=== PATIENT | female | born 1960 | race African-American/Black ===

== ENCOUNTER → 2017-05-18 | Outpatient (CLI) | payer OTHER ==
[~2017-05-18] MED LIST: CENTRUM SILVER1 EAC4 PO; INVOKANA100 MG; NEURONTIN 300300 M1 PO; NORCO 5-325 TA1 EACH PO; NOVOLIN N100 UNIT/1 SUBQ; NOVOLIN R100 UNIT/1 SUBQ; PANTOPRAZOLE SO40 M1 PO; PROZAC 10 MG CA10 MG; PROZAC10 M1 PO
[2017-05-18 12:45] LABS: ABSOLUTE NEUTROPHILS 4.6 thou/uL (1.4-8.2); BASOPHILS 0.8 % (0.0-2.0); EOSINOPHILS 4.1 % (0.0-3.0); HEMATOCRIT 35.9 % (37.0-47.0); HEMOGLOBIN 12.1 gm/dL (12.0-15.0); MANUAL DIFF NO; MCH 27.9 pg (26.0-34.0); MCHC 33.6 g/dL (28.0-37.0); MCV 83.1 fL (80.0-100.0); MONOCYTES 6.2 % (1.0-8.0); PLATELET COUNT 278 thou/uL (150-400); POLYS 57.9 % (36.0-66.0); RBC 4.33 mil/uL (4.20-5.00); RDW 13.6 % (10.5-14.5)
[2017-05-18 12:56] LABS: CALCIUM 9.2 mg/dL (8.5-10.1); CREATININE 0.8 mg/dL (0.6-1.0); POTASSIUM 4.2 mmol/L (3.5-5.1)
[2017-05-18 13:00] LABS: ALBUMIN 3.5 g/dL (3.4-5.0); TOTAL BILIRUBIN 0.2 mg/dL (<0.1-1.0); TOTAL PROTEIN 8.5 g/dL (6.4-8.2)
== END ==
LOC: LABMALL 12:18
PROVIDERS: Surgery
DX: E11.9 Type 2 diabetes mellitus without complications (principal); K21.9 Gastro-esophageal reflux disease without esophagitis; E66.01 Morbid (severe) obesity due to excess calories; Z68.41 Body mass index [BMI] 40.0-44.9, adult

== ENCOUNTER 2017-05-20 05:33 | Day surgery (SDC) | payer OTHER ==
[~2017-05-20] VITALS: Ht 157.5 cm; Wt 95.9 kg
--- NOTE | ~2017-05-20 | S ---
[facility] [place] [address] SURGICAL PATH RPT PROCEDURE Name: MOHINI BROWN Room #: DEP [facility] M..#: [id number] Admission: 05/20/17 Date of : 56 Discharge: 05/21/17 Report #: [id number] Path Case #: [id number] PATHOLOGY REPORT COLLECTION DATE: 05/20/2017 RECEIVED DATE: 05/20/2017 SUBMITTING PHYS: Dr. Negro Jay OTHER PHYS: Dr. Nasir Sylvester SPECIMEN(S) RECEIVED: A.Gastric sleeve * * * * * * * * * * * * FINAL DIAGNOSIS: Gastric sleeve, partial sleeve gastrectomy: - No significant diagnostic abnormalities present, history of morbid obesity. (IUV:pit; 05/23/2017) PATHOLOGIST: Gabriela Juan M.D. REPORT ELECTRONICALLY SIGNED BY: Gabriela Juan M.D. DATE/TIME: 05/23/2017 15:08 * * * * * * * * * * * * GROSS PATHOLOGY: The specimen is received in formalin, labeled "Mohini Brown, gastric sleeve". Received is an elongated partial gastrectomy specimen measuring 17.8 cm in length and up to 3.2 cm in diameter. A long stapled resection margin is identified. The serosal surface of the specimen displays a wrinkled, pale pink to goddard appearance. Opening the specimen reveals a normal, pale goddard, folded mucosa with no polypoid adhesions or solid masses identified. Android Programmer sections are submitted in cassette A1. (SNA; 05/20/2017) CLINICAL HISTORY: Morbid obesity INITIAL CPT CODE(S): A; 09193 Professional services performed by [facility] at [facility] [address], [place] [address] Technical services performed by [facility] at [address] [place] [address] [address] [place] [address] SURGICAL PATH RPT PROCEDURE Name: MOHINI BROWN Room #: DEP [facility] Surjit#: [id number] Admission: 05/20/17 Date of : 56 Discharge: 05/21/17 Report #: [id number] Path Case #: [id number] [place] [address]. [facility] [address] [place] [address] PHONE: [phone] DIRECTOR: Mayco Young M.D. * * * END OF REPORT * * *
--- NOTE | ~2017-05-20 | EKG ---
[place] [address] [facility] [place] [address] ELECTROCARDIOGRAM REPORT Name: ABRAHAM BROWN Room #: DEP [facility]#: [id number] Admission: 05/20/17 Attend Phys: Negro Jay MD, F Discharge: 05/21/17 Date of : 56 Report #: [id number] THIS REPORT FOR: //name// [facility] Test Date: 2017-05-20 Test Time: 06:43:27 Pat Name: ABRAHAM BROWN Department: Room: 150 2 Gender: F Low Voltage Technician: : 1960 Requested By: Negro Jay Order Number: [id number] MD: Arjun Stephens Measurements Intervals [place] Rate: 70 P: 49 VT: 148 QRS: 0 QRSD: 95 T: 100 QT: 421 QTc: 455 Interpretive Statements Sinus rhythm Left ventricular hypertrophy Nonspecific T abnrm, anterolateral leads No previous ECG available for comparison Electronically Signed On 05-22-2017 13:06:44 CDT by Arjun Stephens [email or web address] <ELECTRONICALLY SIGNED> By: Arjun Stephens MD, [facility] 05/22/17 1306 [id number] 2 Arjun Stephens MD, FACC /EPI
[2017-05-20 07:15] VITALS: BP 126/73
[2017-05-20 20:34] VITALS: BP 100/50
[2017-05-21 04:00] VITALS: BP 109/54
[2017-05-21 05:11] LABS: BASOPHILS 0.3 % (0.0-2.0); EOSINOPHILS 1.4 % (0.0-3.0); HEMATOCRIT 34.7 % (37.0-47.0); HEMOGLOBIN 11.4 gm/dL (12.0-15.0); LYMPHOCYTES 30.1 % (24.0-44.0); MCH 27.6 pg (26.0-34.0); MCHC 32.8 g/dL (28.0-37.0); MCV 84.2 fL (80.0-100.0); MONOCYTES 8.1 % (1.0-8.0); PLATELET COUNT 299 thou/uL (150-400); POLYS 60.1 % (36.0-66.0); RBC 4.12 mil/uL (4.20-5.00); RDW 14.2 % (10.5-14.5); WBC 11.7 thou/uL (4.0-11.0)
[2017-05-21 05:37] LABS: MANUAL DIFF NO
[2017-05-21 05:56] LABS: CALCIUM 7.9 mg/dL (8.5-10.1); CREATININE 1.1 mg/dL (0.6-1.0)
[2017-05-21 16:08] VITALS: BP 109/54
== END 2017-05-21 17:07 | disposition home or self-care (01) ==
LOC: TBA 05:33 → OR 05:33 → TBA 05:34 → EDSTATUS 10:08 → OR 10:10 → 5S 10:54 → OR 10:58 → GI 14:56 → OR 05-21 17:07
PROVIDERS: Surgery
DX: E66.01 Morbid (severe) obesity due to excess calories (principal); E11.9 Type 2 diabetes mellitus without complications; K21.9 Gastro-esophageal reflux disease without esophagitis; M19.90 Unspecified osteoarthritis, unspecified site; F32.9 Major depressive disorder, single episode, unspecified
CPT/HCPCS: 50010; 50101; 50222; 50249; 50386; 50555; 50739; 50740; 50962; 51437; 52182; 52265; 53307; 53311; 54022; 54118; 55245; 56462; 56525; 56526; 57092; 62110; 62900; 70005

== ENCOUNTER 2017-05-28 17:37 | Inpatient (IN) | payer OTHER ==
[~2017-05-28] VITALS: Ht 157.5 cm; Wt 100.2 kg
[2017-05-28 17:40] VITALS: BP 146/88
[2017-05-28 18:24] LABS: ABSOLUTE NEUTROPHILS 9.1 thou/uL (1.4-8.2); BASOPHILS 0.3 % (0.0-2.0); EOSINOPHILS 1.1 % (0.0-3.0); HEMATOCRIT 38.8 % (37.0-47.0); HEMOGLOBIN 12.7 gm/dL (12.0-15.0); MCH 27.3 pg (26.0-34.0); MCHC 32.6 g/dL (28.0-37.0); MCV 83.7 fL (80.0-100.0); MONOCYTES 5.6 % (1.0-8.0); PLATELET COUNT 340 thou/uL (150-400); RBC 4.64 mil/uL (4.20-5.00); RDW 13.7 % (10.5-14.5); WBC 11.9 thou/uL (4.0-11.0)
[2017-05-28 18:25] LABS: MANUAL DIFF NO
[2017-05-28 18:35] LABS: CALCIUM 9.2 mg/dL (8.5-10.1); CREATININE 0.9 mg/dL (0.6-1.0); POTASSIUM 3.6 mmol/L (3.5-5.1)
[2017-05-28 18:39] LABS: ALBUMIN 3.3 g/dL (3.4-5.0); DIRECT BILIRUBIN 0.1 mg/dL (<0.1-0.3); TOTAL BILIRUBIN 0.5 mg/dL (<0.1-1.0); TOTAL PROTEIN 8.7 g/dL (6.4-8.2)
[2017-05-28 20:45] LABS: URINE BILIRUBIN NEGATIVE (Negative); URINE BLOOD NEGATIVE (Negative); URINE COLOR YELLOW; URINE GLUCOSE-RANDOM* NEGATIVE (Negative); URINE KETONES 3+ (Negative); URINE NITRITE NEGATIVE (Negative); URINE PROTEIN (DIPSTICK) NEGATIVE (Negative); URINE UROBILINOGEN 0.2 E.U./dl (0.2-1.0)
[2017-05-28 20:52] VITALS: BP 142/64; BP 143/66
[2017-05-28 21:30] VITALS: BP 138/64
[2017-05-28] MEDS ORDERED: OMEPRAZOLE-BIC1 EAC1 PO (22:34)
[2017-05-28] MEDS ORDERED: ONDANSETRON HCL4 M2 PO (22:35)
[2017-05-28] MEDS ORDERED: HYDROCODONE-APA1 TA1 PO (22:39)
[2017-05-28] MEDS ORDERED: UNICOMPLEX M TA1 TA1 (22:40)
[2017-05-28] MEDS ORDERED: NOVOLIN N100 UNIT/3 SQ (22:44)
[2017-05-28 23:50] VITALS: BP 138/63
[2017-05-29 04:27] LABS: CALCIUM 7.8 mg/dL (8.5-10.1); CREATININE 0.7 mg/dL (0.6-1.0); MAGNESIUM 1.5 mg/dL (1.8-2.4); PHOSPHORUS 3.1 mg/dL (2.5-4.9); POTASSIUM 3.5 mmol/L (3.5-5.1)
[2017-05-29 04:30] VITALS: BP 131/58
[2017-05-29 04:32] LABS: ABSOLUTE NEUTROPHILS 7.7 thou/uL (1.4-8.2); BASOPHILS 0.3 % (0.0-2.0); HEMATOCRIT 34.2 % (37.0-47.0); HEMOGLOBIN 11.3 gm/dL (12.0-15.0); LYMPHOCYTES 19.5 % (24.0-44.0); MCH 27.7 pg (26.0-34.0); MCHC 33.1 g/dL (28.0-37.0); MCV 83.6 fL (80.0-100.0); MONOCYTES 7.5 % (1.0-8.0); PLATELET COUNT 295 thou/uL (150-400); POLYS 69.7 % (36.0-66.0); RBC 4.09 mil/uL (4.20-5.00)
[2017-05-29 04:34] LABS: MANUAL DIFF NO
[2017-05-29 07:41] VITALS: BP 136/60
[2017-05-29] MEDS ORDERED: PHENERGAN12.5 M2 RECTAL (08:14)
[2017-05-29] MEDS ORDERED: HYDROCODONE-ACE15 ML PO (08:15)
[2017-05-29 10:46] VITALS: BP 136/60
== END 2017-05-29 11:40 | disposition home or self-care (01) | DRG 948 ==
LOC: ER 17:37 → EROBS 20:00 → 4S 21:12
PROVIDERS: Nurse Practitioner Family; Otolaryngology; Physician Assistant
DX: G89.18 Other acute postprocedural pain (principal); R11.2 Nausea with vomiting, unspecified; E11.9 Type 2 diabetes mellitus without complications; K21.9 Gastro-esophageal reflux disease without esophagitis; R10.9 Unspecified abdominal pain; E86.0 Dehydration; Z79.4 Long term (current) use of insulin; Z98.84 Bariatric surgery status; Z90.711 Acquired absence of uterus with remaining cervical stump; Z85.41 Personal history of malignant neoplasm of cervix uteri; Z90.49 Acquired absence of other specified parts of digestive tract; Z79.899 Other long term (current) drug therapy
CPT/HCPCS: 10100

== ENCOUNTER 2017-06-13 22:12 | Emergency (ER) | payer OTHER ==
[~2017-06-13] VITALS: Ht 157.5 cm; Wt 86.2 kg
[~2017-06-13 22:12] MED LIST changes: +HYDROCODONE-ACE15 ML PO; +HYDROCODONE-APA1 TA1 PO; +NOVOLIN N100 UNIT/3 SQ; +OMEPRAZOLE-BIC1 EAC1 PO; +ONDANSETRON HCL4 M2 PO; +PHENERGAN12.5 M2 RECTAL; +UNICOMPLEX M TA1 TA1 TOP
[2017-06-14 00:03] LABS: ABSOLUTE NEUTROPHILS 4.6 thou/uL (1.4-8.2); BASOPHILS 0.6 % (0.0-2.0); EOSINOPHILS 2.3 % (0.0-3.0); HEMATOCRIT 40.3 % (37.0-47.0); HEMOGLOBIN 13.2 gm/dL (12.0-15.0); LYMPHOCYTES 25.7 % (24.0-44.0); MCH 27.4 pg (26.0-34.0); MCHC 32.9 g/dL (28.0-37.0); MCV 83.4 fL (80.0-100.0); MONOCYTES 9.6 % (1.0-8.0); PLATELET COUNT 251 thou/uL (150-400); POLYS 61.8 % (36.0-66.0); RBC 4.83 mil/uL (4.20-5.00); RDW 13.8 % (10.5-14.5); WBC 7.5 thou/uL (4.0-11.0)
[2017-06-14 00:07] LABS: ANION GAP 14 mmol/L (7-16); BUN 16 mg/dL (7-18); CALCIUM 9.2 mg/dL (8.5-10.1); CHLORIDE 99 mmol/L (98-107); CO2 24 mmol/L (21-32); CREATININE 0.9 mg/dL (0.6-1.0); GLUCOSE 331 mg/dL (74-106); POTASSIUM 3.4 mmol/L (3.5-5.1); SODIUM 137 mmol/L (136-145)
[2017-06-14 00:12] LABS: ALBUMIN 3.3 g/dL (3.4-5.0); ALKALINE PHOSPHATASE 148 U/L (46-116); DIRECT BILIRUBIN < 0.1 mg/dL (<0.1-0.3); SGOT 26 U/L (15-37); SGPT 38 U/L (30-65); TOTAL BILIRUBIN 0.5 mg/dL (<0.1-1.0); TOTAL PROTEIN 8.7 g/dL (6.4-8.2)
[2017-06-14 00:14] LABS: MANUAL DIFF NO
[2017-06-14] MEDS ORDERED: HUMALIN R SUBQ (00:52)
[2017-06-14 02:26] LABS: URINE BILIRUBIN 2+ (Negative); URINE BLOOD TRACE (Negative); URINE COLOR YELLOW; URINE GLUCOSE-RANDOM* 1+ (Negative); URINE KETONES 3+ (Negative); URINE LEUKOCYTES-REFLEX NEGATIVE (Negative); URINE PROTEIN (DIPSTICK) 2+ (Negative); URINE SPECIFIC GRAVITY >= 1.030 (1.003-1.035)
[2017-06-14 02:33] LABS: ICTOTEST (BILI CONFIRMATORY) Positive (Negative)
[2017-06-14 02:34] LABS: CASTS None Seen /LPF (None Seen); CRYSTALS None Seen /LPF (None Seen); SQUAMOUS >10 Many /LPF (0-3); URINE RBC 0-2 Rare /HPF (0-2)
[2017-06-14] MEDS ORDERED: PROMS25 WY RECTAL (04:12)
== END 2017-06-14 04:13 | disposition home or self-care (01) ==
LOC: ER 22:12
PROVIDERS: Emergency Medicine
DX: R11.2 Nausea with vomiting, unspecified (principal); R82.4 Acetonuria; K95.89 Other complications of other bariatric procedure; E11.9 Type 2 diabetes mellitus without complications; K21.9 Gastro-esophageal reflux disease without esophagitis; Z90.711 Acquired absence of uterus with remaining cervical stump; Z90.49 Acquired absence of other specified parts of digestive tract; Z85.89 Personal history of malignant neoplasm of other organs and systems; Z79.4 Long term (current) use of insulin

== ENCOUNTER 2017-06-20 19:47 | Inpatient (IN) | payer OTHER ==
[~2017-06-20] VITALS: Ht 157.5 cm; Wt 85.7 kg
[~2017-06-20 19:47] MED LIST changes: +HUMALIN R SUBQ; +PROMS25 WY RECTAL
[2017-06-20 20:05] VITALS: BP 158/84
[2017-06-20 20:43] LABS: ABSOLUTE NEUTROPHILS 7.7 thou/uL (1.4-8.2); BASOPHILS 0.4 % (0.0-2.0); EOSINOPHILS 0.4 % (0.0-3.0); LYMPHOCYTES 16.3 % (24.0-44.0); MCH 28.1 pg (26.0-34.0); MCHC 33.3 g/dL (28.0-37.0); MCV 84.4 fL (80.0-100.0); MONOCYTES 7.5 % (1.0-8.0); PLATELET COUNT 294 thou/uL (150-400); POLYS 75.4 % (36.0-66.0); RBC 4.97 mil/uL (4.20-5.00); RDW 14.3 % (10.5-14.5); WBC 10.2 thou/uL (4.0-11.0)
[2017-06-20 20:47] LABS: MANUAL DIFF NO
[2017-06-20 20:55] LABS: URINE BILIRUBIN 2+ (Negative); URINE BLOOD 1+ (Negative); URINE COLOR YELLOW; URINE GLUCOSE-RANDOM* 2+ (Negative); URINE KETONES 2+ (Negative); URINE LEUKOCYTES-REFLEX NEGATIVE (Negative); URINE PROTEIN (DIPSTICK) 2+ (Negative); URINE SPECIFIC GRAVITY >= 1.030 (1.003-1.035); URINE UROBILINOGEN 0.2 E.U./dl (0.2-1.0)
[2017-06-20 20:57] LABS: ICTOTEST (BILI CONFIRMATORY) Negative (Negative)
[2017-06-20 21:03] LABS: HYALINE CASTS 0-3 Few /LPF (None Seen); SQUAMOUS 4-10 Moderate /LPF (0-3)
[2017-06-20 21:04] LABS: CRYSTALS None Seen /LPF (None Seen); URINE RBC 0-2 Rare /HPF (0-2); URINE WBC-REFLEX None Seen /HPF (0-5)
[2017-06-20 21:44] LABS: CALCIUM 9.2 mg/dL (8.5-10.1); CREATININE 1.1 mg/dL (0.6-1.0)
[2017-06-20 21:49] LABS: TOTAL BILIRUBIN 0.5 mg/dL (<0.1-1.0); TOTAL PROTEIN 8.4 g/dL (6.4-8.2)
[2017-06-20 22:16] VITALS: BP 122/47
[2017-06-20 22:47] VITALS: BP 104/45; BP 114/58
[2017-06-20 23:10] VITALS: BP 149/79
[2017-06-21 04:05] VITALS: BP 106/66
[2017-06-21 08:32] VITALS: BP 119/65
[2017-06-21 09:19] LABS: % SATURATION 28 % (20-39); IRON 61 ug/dL (50-170); TIBC 221 ug/dL (250-450); UIBC 160 ug/dL
[2017-06-21 10:26] LABS: FOLIC ACID 18.1 ng/mL (8.6-58.9)
[2017-06-21 16:51] VITALS: BP 106/45
[2017-06-21 19:44] VITALS: BP 113/51
[2017-06-22 04:23] VITALS: BP 116/61
[2017-06-22 05:07] LABS: CALCIUM 8.3 mg/dL (8.5-10.1); CREATININE 0.7 mg/dL (0.6-1.0); POTASSIUM 3.2 mmol/L (3.5-5.1)
[2017-06-22 08:35] VITALS: BP 114/64
[2017-06-22 16:20] VITALS: BP 118/58
[2017-06-22 19:03] VITALS: BP 122/71
[2017-06-23 04:22] VITALS: BP 130/67
[2017-06-23 11:25] VITALS: BP 130/67
[2017-06-23 11:34] VITALS: BP 130/67
== END 2017-06-23 15:20 | disposition home or self-care (01) | DRG 391 ==
LOC: ER 19:47 → EROBS 22:11 → 3N 22:11
PROVIDERS: Emergency Medicine; Family Medicine; Physician Assistant; Surgery
DX: R11.2 Nausea with vomiting, unspecified (principal); E43 Unspecified severe protein-calorie malnutrition; S82.6 Fracture of lateral malleolus; E86.0 Dehydration; E87.6 Hypokalemia; F41.9 Anxiety disorder, unspecified; K21.9 Gastro-esophageal reflux disease without esophagitis; R82.4 Acetonuria; E11.65 Type 2 diabetes mellitus with hyperglycemia; W18.39XA Other fall on same level, initial encounter; Z79.4 Long term (current) use of insulin; Z90.711 Acquired absence of uterus with remaining cervical stump; Z85.41 Personal history of malignant neoplasm of cervix uteri; Z68.34 Body mass index [BMI] 34.0-34.9, adult; Z98.84 Bariatric surgery status; Z79.899 Other long term (current) drug therapy; Z90.49 Acquired absence of other specified parts of digestive tract; Y93.89 Activity, other specified; Y92.89 Other specified places as the place of occurrence of the external cause; Y99.8 Other external cause status
CPT/HCPCS: 10094

== ENCOUNTER → 2018-01-10 | Outpatient (CLI) | payer OTHER | LOC: MRI 11:38 | DX: S43.402A Unspecified sprain of left shoulder joint, initial encounter (principal); X58.XXXA Exposure to other specified factors, initial encounter; Y93.89 Activity, other specified; Y92.89 Other specified places as the place of occurrence of the external cause; Y99.8 Other external cause status ==